=== PATIENT | male | born 1955 | race Caucasian/White ===

== ENCOUNTER 2017-01-12 01:50 | Observation (INO) | payer MEDICARE, OTHER ==
[~2017-01-12] VITALS: Ht 165.1 cm; Wt 129.0 kg
[~2017-01-12 01:50] MED LIST: ASPIRIN EC81 MG PO; BUSPIRONE HCL15 MG PO; CARDIZEM30 MG PO; DILTIAZEM 12HR60 MG PO; DULERA 100 MCG8.8 GM INH; FLEXERIL 10 MG10 MG PO; GLUCOPHAGE 500500 MG PO; LIPITOR TAB 2020 MG PO; LOPRESSOR100 MG PO; LORTAB 10-3251 EACH PO; METOPROLOL TAR100 MG PO; PANTOPRAZOLE SO40 MG PO; PROTONIX40 MG PO; SERTRALINE HCL50 MG PO; TRAZODONE HCL50 MG PO; VENTOLIN HFA 66.7 GM INH; VITAMIN B-121000 MC3 PO
[2017-01-12 02:07] LABS: HEMOGLOBIN 14.6 gm/dl (14.0-17.5); RED BLOOD COUNT 4.56 M/UL (4.20-5.50); WHITE BLOOD COUNT 10.6 K/UL (4.5-11.0)
[2017-01-12 02:36] LABS: BUN/CREATININE RATIO 14 (0-10)
[2017-01-12] MEDS ORDERED: CARDIZEM30 MG PO (16:43)
== END 2017-01-12 18:40 | disposition home or self-care (01) ==
LOC: ER1 01:50 → ZEROF 05:55 → PROG CARE 10:35
PROVIDERS: Family Medicine; ADMIT Internal Medicine
DX: I34.0 Nonrheumatic mitral (valve) insufficiency (principal); I42.1 Obstructive hypertrophic cardiomyopathy; I10 Essential (primary) hypertension; E78.5 Hyperlipidemia, unspecified; G47.33 Obstructive sleep apnea (adult) (pediatric); E11.9 Type 2 diabetes mellitus without complications; I27.2 Other secondary pulmonary hypertension; F41.9 Anxiety disorder, unspecified; F17.210 Nicotine dependence, cigarettes, uncomplicated; K21.9 Gastro-esophageal reflux disease without esophagitis; N28.89 Other specified disorders of kidney and ureter; E66.01 Morbid (severe) obesity due to excess calories; Z79.82 Long term (current) use of aspirin; Z79.891 Long term (current) use of opiate analgesic; Z79.899 Other long term (current) drug therapy; Z90.49 Acquired absence of other specified parts of digestive tract; Z82.49 Family history of ischemic heart disease and other diseases of the circulatory system
CPT/HCPCS: ECHO; 36415; 71010; 80053; 80061; 82550; 82553; 82947; 82962; 83036; 83874; 83880; 84443; 84484; 85025; 93005; 93306; 94640; 94664; 99285; C1769; G0378; J1644; J2250; J3010; J7040; Q0162; Q9963

== ENCOUNTER 2017-03-11 17:31 | Emergency (ER) | payer MEDICARE, OTHER ==
[2017-03-11 19:16] LABS: HEMOGLOBIN 15.6 gm/dl (14.0-17.5); RED BLOOD COUNT 4.83 M/UL (4.20-5.50)
[2017-03-11 19:40] LABS: BUN/CREATININE RATIO 20 (0-10)
== END 2017-03-12 00:45 | disposition home or self-care (01) ==
LOC: ER1 17:31
PROVIDERS: Emergency Medicine
DX: I20.9 Angina pectoris, unspecified (principal); I11.9 Hypertensive heart disease without heart failure; E78.5 Hyperlipidemia, unspecified; Z79.84 Long term (current) use of oral hypoglycemic drugs; Z79.899 Other long term (current) drug therapy
CPT/HCPCS: 36415; 36600; 71020; 80053; 82550; 82553; 82803; 83874; 83880; 84484; 85025; 93005; 99285; J7050; Q9963

== ENCOUNTER 2021-01-13 15:23 | Emergency (ER) | payer MEDICARE ==
[~2021-01-13 15:23] MED LIST changes: +ALBUTEROL1.25 MG/3 INH; +BUSPAR 10MG10 MG PO; +CARDIZEM 60MG T60 MG PO; +DILTIAZEM HCL30 MG PO; +FUROSEMIDE20 MG PO; +FUROSEMIDE40 MG PO; +IPRAT-ALBUT 0.5-3 ML INH; +K-DUR TAB 20 M20 MEQ PO; +LIPITOR40 MG PO; +LOPRESSOR 25 MG25 MG PO; +METOPROLOL TART50 MG PO; +NICODERM CQ1 EAC1 TD; +NYSTATIN1 EAC2 MC; +NYSTATIN60 GM TOP; +PAIN RELIEF325 MG PO
[2021-01-13 17:05] LABS: HEMOGLOBIN 14.9 gm/dl (14.0-17.5); RED BLOOD COUNT 4.82 M/UL (4.20-5.50); WHITE BLOOD COUNT 8.8 K/UL (4.5-11.0)
[2021-01-13 17:21] LABS: BUN/CREATININE RATIO 16 (0-10)
== END 2021-01-14 22:35 | disposition short-term general hospital (02) ==
LOC: ER1 15:23
PROVIDERS: Emergency Medicine
DX: I20.0 Unstable angina (principal); E11.9 Type 2 diabetes mellitus without complications; I10 Essential (primary) hypertension; J44.9 Chronic obstructive pulmonary disease, unspecified; F17.210 Nicotine dependence, cigarettes, uncomplicated
CPT/HCPCS: 71045; 80053; 82550; 82553; 83874; 83880; 84484; 85025; 93005; 94664; 99285

== ENCOUNTER → 2021-01-18 | Outpatient (CLI) | payer MEDICARE, OTHER ==
[~2021-01-18] MED LIST changes: +ALBUTEROL2.5 MG/3 M INH; +ASPERCREME 1141.7 GM TP; +BREO ELLIPTA 11 EACH INH; +CARDIZEM 30MG T30 MG PO; +DESYREL 50 MG T50 MG PO; +FAMOTIDINE40 MG PO; +LOPRESSOR 50 MG50 MG PO; +MUCINEX600 MG PO; +OMNICEF 300 MG300 MG PO; +RANEXA500 MG PO
== END ==
LOC: KOH-I 10-30 13:00
DX: F17.200 Nicotine dependence, unspecified, uncomplicated (principal); I25.10 Atherosclerotic heart disease of native coronary artery without angina pectoris
CPT/HCPCS: 71271

== ENCOUNTER 2021-01-26 15:44 | Observation (INO) | payer MEDICARE, OTHER ==
[~2021-01-26] VITALS: Ht 167.6 cm; Wt 145.1 kg
[~2021-01-26 15:44] MED LIST changes: -ALBUTEROL2.5 MG/3 M INH; -ASPERCREME 1141.7 GM TP; -BREO ELLIPTA 11 EACH INH; -CARDIZEM 30MG T30 MG PO; -DESYREL 50 MG T50 MG PO; -FAMOTIDINE40 MG PO; -LOPRESSOR 50 MG50 MG PO; -MUCINEX600 MG PO; -OMNICEF 300 MG300 MG PO; -RANEXA500 MG PO
[2021-01-26 16:24] LABS: HEMOGLOBIN 13.8 gm/dl (14.0-17.5); RED BLOOD COUNT 4.49 M/UL (4.20-5.50); WHITE BLOOD COUNT 10.1 K/UL (4.5-11.0)
[2021-01-26 16:49] LABS: BUN/CREATININE RATIO 17 (0-10)
[2021-01-27] MEDS ORDERED: DESYREL 50 MG T50 MG PO (10:19)
[2021-01-27] MEDS ORDERED: RANEXA500 MG PO (10:19)
[2021-01-27] MEDS ORDERED: FAMOTIDINE40 MG PO (10:20)
[2021-01-27] MEDS ORDERED: VENTOLIN HFA 66.7 GM INH (10:21)
[2021-01-27] MEDS ORDERED: ASPERCREME 1141.7 GM TP (10:28)
[2021-01-28 06:42] LABS: HEMOGLOBIN 13.8 gm/dl (14.0-17.5); RED BLOOD COUNT 4.59 M/UL (4.20-5.50)
[2021-01-28 06:52] LABS: WHITE BLOOD COUNT 14.2 K/UL (4.5-11.0)
[2021-01-28 06:56] LABS: BUN/CREATININE RATIO 20 (0-10)
[2021-01-29] MEDS ORDERED: LOPRESSOR 50 MG50 MG PO (11:54)
[2021-01-29] MEDS ORDERED: CARDIZEM 30MG T30 MG PO (11:54)
== END 2021-01-29 17:35 | disposition home or self-care (01) ==
LOC: ER1 15:44 → MED SURG 4 20:30 → CDU 20:30 → MED SURG 4 22:39
PROVIDERS: Nurse Practitioner; ADMIT Internal Medicine
DX: R07.89 Other chest pain (principal); I25.10 Atherosclerotic heart disease of native coronary artery without angina pectoris; I10 Essential (primary) hypertension; E11.9 Type 2 diabetes mellitus without complications; F41.9 Anxiety disorder, unspecified; J45.909 Unspecified asthma, uncomplicated; E66.01 Morbid (severe) obesity due to excess calories; Z79.899 Other long term (current) drug therapy; Z79.84 Long term (current) use of oral hypoglycemic drugs; Z79.82 Long term (current) use of aspirin; Z20.822 Contact with and (suspected) exposure to COVID-19
CPT/HCPCS: ECHO; 36415; 71045; 80048; 80053; 82550; 82553; 82962; 83735; 83874; 83880; 84484; 85025; 85379; 93005; 93306; 94640; 94664; 94760; 96372; 96374; 96375; 99285; G0378; J1650; J1885; J1940; J2270; J2405; J2930; U0002

== ENCOUNTER 2021-03-29 15:27 | Observation (INO) | payer MEDICARE, OTHER ==
[~2021-03-29] VITALS: Ht 170.2 cm; Wt 154.7 kg
[~2021-03-29 15:27] MED LIST changes: +ASPERCREME 1141.7 GM TP; +CARDIZEM 30MG T30 MG PO; +DESYREL 50 MG T50 MG PO; +FAMOTIDINE40 MG PO; +LOPRESSOR 50 MG50 MG PO; +RANEXA500 MG PO
[2021-03-29 16:50] LABS: HEMOGLOBIN 15.1 gm/dl (14.0-17.5); RED BLOOD COUNT 4.89 M/UL (4.20-5.50); WHITE BLOOD COUNT 8.7 K/UL (4.5-11.0)
[2021-03-29 17:16] LABS: BUN/CREATININE RATIO 16 (0-10)
[2021-03-29] MEDS ORDERED: BREO ELLIPTA 11 EACH INH (19:43)
[2021-03-29] MEDS ORDERED: LOPRESSOR 25 MG25 MG PO (19:51)
[2021-03-29] MEDS ORDERED: MUCINEX600 MG PO (19:52)
[2021-03-29] MEDS ORDERED: CARDIZEM 60MG T60 MG PO (20:02)
[2021-03-29] MEDS ORDERED: BUSPAR 10MG10 MG PO (20:04)
[2021-03-29] MEDS ORDERED: ALBUTEROL2.5 MG/3 M INH (20:06)
[2021-03-30 03:30] LABS: HEMOGLOBIN 15.3 gm/dl (14.0-17.5); RED BLOOD COUNT 4.91 M/UL (4.20-5.50)
--- NOTE | 2021-03-30 08:00 | NUR ---
RN WAS SITTING AT NURSE'S STATION CHARTING AND HAPPENED TO LOOK INTO ROOM 4101. RN OBSERVED PATIENT LEANING TO HIS RIGHT SIDE IN A SITTING POSITION WITH HIS LEFT HAND CLUTCHING HIS CHEST. RN RAN INTO ROOM AND ASKED PATIENT IF HE WAS OKAY AND IF HE WAS EXPERIENCING CHEST PAIN. THE PATIENT WAS HAVING TROUBLE FORMING WORDS BUT MANAGED TO EXPRESS THAT HE WAS HAVING CHEST PAIN. RN NOTED THAT THE PATIENT'S SKIN COLOR LOOKED CAMP IN COMPARISON TO THE SHIFT ASSESSMENT PERFORMED BY RN PRIOR TO NOW. RN PRESSED THE STAFF ASSIST BUTTON. HELP ARRIVED, VITALS WERE OBTAINED, DR. MAYO WAS NOTIFIED OF SUDDEN CHANGE IN CONDITION, AND ORDERS WERE OBTAINED. MD ORDERED NITROGLYCERIN, CHEST X-RAY, CARDIAC PANEL. OTHER INTERVENTIONS INCLUDED THE FOLLOWING: CARDIAC CONSULT, DUONEBS. CARDIAC MD AND PA ASSESSED PATIENT AND ORDERED MORE MEDICATIONS AND INTERVENTIONS. PATIENT BECAME MORE ALERT AND ORIENTED INTERVENTIONS WERE CARRIED OUT. BLOOD PRESSURE DECREASED SIGNIFICANTLY AND PATIENT STATED THAT CHEST PAIN RESOLVED. BED LOCKED AND LOW. CALL LIGHT WITHIN REACH. RESEARCH ENVIRONMENTAL SCIENTIST MADE AWARE.
[2021-03-31] MEDS ORDERED: OMNICEF 300 MG300 MG PO (09:50)
[2021-03-31] MEDS ORDERED: LOPRESSOR 50 MG50 MG PO (09:50)
== END 2021-04-01 16:30 | disposition home or self-care (01) ==
LOC: ER1 15:27 → MED SURG 4 18:04 → CDU 18:04 → MED SURG 4 19:32
PROVIDERS: Emergency Medicine; Physician Assistant Medical; ADMIT Internal Medicine
DX: I11.0 Hypertensive heart disease with heart failure (principal); I50.31 Acute diastolic (congestive) heart failure; I25.10 Atherosclerotic heart disease of native coronary artery without angina pectoris; I42.2 Other hypertrophic cardiomyopathy; Z20.822 Contact with and (suspected) exposure to COVID-19; M50.30 Other cervical disc degeneration, unspecified cervical region; E11.9 Type 2 diabetes mellitus without complications; F41.9 Anxiety disorder, unspecified; J44.9 Chronic obstructive pulmonary disease, unspecified; F17.210 Nicotine dependence, cigarettes, uncomplicated; E66.01 Morbid (severe) obesity due to excess calories
CPT/HCPCS: 36415; 70450; 71045; 72125; 80048; 80053; 82550; 82553; 82962; 83605; 83690; 83735; 83874; 83880; 84100; 84439; 84443; 84484; 85025; 85027; 85610; 85730; 87040; 93005; 94640; 94664; 94760; 96365; 96366; 96372; 96375; 96376; 99285; G0378; J0456; J0696; J1650; J1940; J2270; J2930; J7030; U0002

== ENCOUNTER 2021-11-14 12:00 | Inpatient (IN) | payer MEDICARE, OTHER ==
[~2021-11-14] VITALS: Ht 162.6 cm; Wt 176.3 kg
[~2021-11-14 12:00] MED LIST changes: +BREO ELLIPTA 11 EACH INH; +BUMETANIDE1 MG PO; +ELIQUIS5 MG PO; +LIDOCAINE PAIN1 EACH TOP; -LIPITOR40 MG PO; +MUCINEX600 MG PO; +NICOTINE PATCH1 EACH TD; +NITROSTAT 0.40.4 MG SL; +OMNICEF 300 MG300 MG PO; +SPIRIVA18 MCG INH
[2021-11-14 12:13] LABS: HEMOGLOBIN 13.2 gm/dl (14.0-17.5); RED BLOOD COUNT 4.46 M/UL (4.20-5.50); WHITE BLOOD COUNT 15.2 K/UL (4.5-11.0)
[2021-11-14] MEDS ORDERED: LOPRESSOR 25 MG25 MG PO (16:21)
[2021-11-14] MEDS ORDERED: NYSTOP60 GM TOP (16:48)
[2021-11-14] MEDS ORDERED: ZOFRAN ODT 4 MG4 MG PO (16:48)
[2021-11-14] MEDS ORDERED: PROTONIX 40 MG40 M1 PO (16:49)
[2021-11-14] MEDS ORDERED: RANEXA500 MG PO (16:50)
[2021-11-14] MEDS ORDERED: ZOLOFT25 MG PO (16:50)
[2021-11-14] MEDS ORDERED: DESYREL 50 MG T50 MG PO (16:51)
[2021-11-14] MEDS ORDERED: BUSPIRONE HCL15 MG PO (20:04)
[2021-11-14] MEDS ORDERED: ALBUTEROL2.5 MG/3 M NEB (20:06)
[2021-11-14] MEDS ORDERED: LIPITOR40 MG PO (20:54)
[2021-11-15 02:55] LABS: HEMOGLOBIN 13.1 gm/dl (14.0-17.5); RED BLOOD COUNT 4.37 M/UL (4.20-5.50); WHITE BLOOD COUNT 13.8 K/UL (4.5-11.0)
--- NOTE | 2021-11-15 07:45 | NUR ---
INFORM COMM[employer]ITY [employer]S OFFICER MEAT STOCKER PATIENT IS ON CARDIZEM AT 15. HIS HEART RATE IS AT 145 PRESENTLY
--- NOTE | 2021-11-15 10:52 | NUR ---
CALLED DR NJ. HE WAS UNAWARE OF THE CONSULT. AWAITING [facility]ARDIOLOGY [facility] TO SEE PATIENT. SEEN PER Alissa TOMPKINS. PATIENT HAS RECIEVED DIGOXIN 0.25MG IV. HEART RATE IS STILL IN THE 150'S
--- NOTE | 2021-11-15 12:38 | NUR ---
AT 1145 DR NJ ON FLOOR FOR CARDIOVERSION. PER MD ORDER MORPHINE 2MG IV GIVEN AND VERSED 2MG GIVEN. PATIENT SHOCKED PER MD AT 200J. TOLERATED WELL, CONVERTED TO SINUS RYTHM.
--- NOTE | 2021-11-15 13:46 | NUR ---
PAGED DR SAUNDERS ABOUT CONSULT FROM DR MAYO
--- NOTE | 2021-11-15 13:52 | NUR ---
MD SAUNDERS RETURNED CALL, INFORMED OF CONSULT FROM DR MAYO
[2021-11-16 02:49] LABS: HEMOGLOBIN 12.3 gm/dl (14.0-17.5); RED BLOOD COUNT 4.28 M/UL (4.20-5.50); WHITE BLOOD COUNT 14.3 K/UL (4.5-11.0)
[2021-11-17 07:50] LABS: HEMOGLOBIN 12.4 gm/dl (14.0-17.5); RED BLOOD COUNT 4.26 M/UL (4.20-5.50); WHITE BLOOD COUNT 13.1 K/UL (4.5-11.0)
[2021-11-17 12:16] LABS: CREATININE, URINE 155.8 mg/dL (Not Estab.)
[2021-11-18 05:39] LABS: HEMOGLOBIN 12.5 gm/dl (14.0-17.5); RED BLOOD COUNT 4.16 M/UL (4.20-5.50)
[2021-11-18 05:43] LABS: WHITE BLOOD COUNT 19.6 K/UL (4.5-11.0)
[2021-11-19 04:09] LABS: HEMOGLOBIN 12.3 gm/dl (14.0-17.5); RED BLOOD COUNT 4.17 M/UL (4.20-5.50); WHITE BLOOD COUNT 24.1 K/UL (4.5-11.0)
[2021-11-20 07:29] LABS: HEMOGLOBIN 11.3 gm/dl (14.0-17.5); RED BLOOD COUNT 3.79 M/UL (4.20-5.50); WHITE BLOOD COUNT 20.1 K/UL (4.5-11.0)
[2021-11-21 10:40] LABS: HEMOGLOBIN 11.2 gm/dl (14.0-17.5)
[2021-11-22 14:14] LABS: BODY FLUID SOURCE BRONCHIAL LAVAGE
[2021-11-22 14:15] LABS: RBC (MANUAL) 32825; WBC (MANUAL) 572.5
[2021-11-22 14:16] LABS: MONONUCLEAR CELLS 25 %; POLYMORPHONUCLEAR 75 %
[2021-11-24 05:22] LABS: HEMOGLOBIN 11.5 gm/dl (14.0-17.5); RED BLOOD COUNT 4.04 M/UL (4.20-5.50); WHITE BLOOD COUNT 12.6 K/UL (4.5-11.0)
[2021-11-25 04:40] LABS: HEMOGLOBIN 12.9 gm/dl (14.0-17.5); RED BLOOD COUNT 4.44 M/UL (4.20-5.50)
[2021-11-25 04:53] LABS: WHITE BLOOD COUNT 16.1 K/UL (4.5-11.0)
[2021-11-26 05:24] LABS: RED BLOOD COUNT 4.45 M/UL (4.20-5.50)
[2021-11-27 05:18] LABS: HEMOGLOBIN 10.9 gm/dl (14.0-17.5); RED BLOOD COUNT 3.76 M/UL (4.20-5.50); WHITE BLOOD COUNT 29.1 K/UL (4.5-11.0)
[2021-11-28 05:40] LABS: RED BLOOD COUNT 3.4 M/UL (4.20-5.50); WHITE BLOOD COUNT 25.5 K/UL (4.5-11.0)
[2021-11-29 05:23] LABS: HEMOGLOBIN 9.6 gm/dl (14.0-17.5); RED BLOOD COUNT 3.3 M/UL (4.20-5.50)
[2021-11-30 05:39] LABS: HEMOGLOBIN 9.2 gm/dl (14.0-17.5); RED BLOOD COUNT 3.14 M/UL (4.20-5.50); WHITE BLOOD COUNT 21.8 K/UL (4.5-11.0)
[2021-12-01 05:16] LABS: RED BLOOD COUNT 3.1 M/UL (4.20-5.50); WHITE BLOOD COUNT 18.6 K/UL (4.5-11.0)
[2021-12-02 05:12] LABS: HEMOGLOBIN 8.6 gm/dl (14.0-17.5); RED BLOOD COUNT 2.93 M/UL (4.20-5.50); WHITE BLOOD COUNT 16.9 K/UL (4.5-11.0)
[2021-12-03 05:54] LABS: HEMOGLOBIN 9.4 gm/dl (14.0-17.5); WHITE BLOOD COUNT 14.3 K/UL (4.5-11.0)
[2021-12-03 05:59] LABS: RED BLOOD COUNT 3.23 M/UL (4.20-5.50)
[2021-12-04 09:54] LABS: HEMOGLOBIN 9.1 gm/dl (14.0-17.5); RED BLOOD COUNT 3.11 M/UL (4.20-5.50); WHITE BLOOD COUNT 13.8 K/UL (4.5-11.0)
[2021-12-05 05:55] LABS: RED BLOOD COUNT 3.12 M/UL (4.20-5.50)
[2021-12-06 04:51] LABS: RED BLOOD COUNT 3.18 M/UL (4.20-5.50)
[2021-12-07 05:07] LABS: HEMOGLOBIN 8.7 gm/dl (14.0-17.5); RED BLOOD COUNT 3.11 M/UL (4.20-5.50); WHITE BLOOD COUNT 19.2 K/UL (4.5-11.0)
[2021-12-07 05:39] LABS: HBSAG SCREEN Negative (Negative); HEP A AB, IGM Negative (Negative); HEP B CORE AB, IGM Negative (Negative); HEP C VIRUS AB 0.1 (0.0-0.9)
[2021-12-08 05:22] LABS: HEMOGLOBIN 9.4 gm/dl (14.0-17.5); RED BLOOD COUNT 3.28 M/UL (4.20-5.50); WHITE BLOOD COUNT 20.1 K/UL (4.5-11.0)
[2021-12-09 05:40] LABS: HEMOGLOBIN 9.4 gm/dl (14.0-17.5); RED BLOOD COUNT 3.35 M/UL (4.20-5.50); WHITE BLOOD COUNT 24.9 K/UL (4.5-11.0)
[2021-12-10 05:18] LABS: RED BLOOD COUNT 2.85 M/UL (4.20-5.50); WHITE BLOOD COUNT 23.2 K/UL (4.5-11.0)
[2021-12-11 04:39] LABS: HEMOGLOBIN 8.2 gm/dl (14.0-17.5); RED BLOOD COUNT 2.85 M/UL (4.20-5.50); WHITE BLOOD COUNT 21.7 K/UL (4.5-11.0)
[2021-12-12 04:36] LABS: HEMOGLOBIN 7.5 gm/dl (14.0-17.5); RED BLOOD COUNT 2.67 M/UL (4.20-5.50); WHITE BLOOD COUNT 16.5 K/UL (4.5-11.0)
[2021-12-13 04:33] LABS: RED BLOOD COUNT 2.82 M/UL (4.20-5.50); WHITE BLOOD COUNT 14.3 K/UL (4.5-11.0)
[2021-12-14 05:18] LABS: HEMOGLOBIN 8.8 gm/dl (14.0-17.5); RED BLOOD COUNT 3.11 M/UL (4.20-5.50); WHITE BLOOD COUNT 14.3 K/UL (4.5-11.0)
[2021-12-15 08:04] LABS: HEMOGLOBIN 7.6 gm/dl (14.0-17.5); WHITE BLOOD COUNT 13.8 K/UL (4.5-11.0)
[2021-12-15 08:07] LABS: RED BLOOD COUNT 2.7 M/UL (4.20-5.50)
[2021-12-16 05:35] LABS: HEMOGLOBIN 7.7 gm/dl (14.0-17.5); RED BLOOD COUNT 2.73 M/UL (4.20-5.50); WHITE BLOOD COUNT 11.5 K/UL (4.5-11.0)
[2021-12-17 10:06] LABS: HEMOGLOBIN 8.4 gm/dl (14.0-17.5); RED BLOOD COUNT 2.98 M/UL (4.20-5.50); WHITE BLOOD COUNT 12.9 K/UL (4.5-11.0)
[2021-12-18 08:08] LABS: HEMOGLOBIN 9.3 gm/dl (14.0-17.5); RED BLOOD COUNT 3.15 M/UL (4.20-5.50)
[2021-12-18 08:09] LABS: WHITE BLOOD COUNT 28.5 K/UL (4.5-11.0)
[2021-12-19 05:44] LABS: HEMOGLOBIN 8.3 gm/dl (14.0-17.5); RED BLOOD COUNT 2.98 M/UL (4.20-5.50); WHITE BLOOD COUNT 23.1 K/UL (4.5-11.0)
[2021-12-21 13:57] LABS: HEMOGLOBIN 8.4 gm/dl (14.0-17.5); RED BLOOD COUNT 2.97 M/UL (4.20-5.50); WHITE BLOOD COUNT 11.8 K/UL (4.5-11.0)
[2021-12-22 08:25] LABS: HEMOGLOBIN 9.5 gm/dl (14.0-17.5); RED BLOOD COUNT 3.38 M/UL (4.20-5.50)
[2021-12-23 05:27] LABS: HEMOGLOBIN 8.6 gm/dl (14.0-17.5); RED BLOOD COUNT 3.06 M/UL (4.20-5.50)
[2021-12-23 05:31] LABS: WHITE BLOOD COUNT 14.5 K/UL (4.5-11.0)
--- NOTE | 2021-12-23 23:31 | NUR ---
STAFF WAS GIVING PT A BATH WHEN PT SKIN WAS NTD TO BREAK OPEN WHEN TRYING TO HOLD PATIENT OVER TO CLEAN HIS BACK AND PROVIDE WOUND CARE. BATH & WOUND CARE UNABLE TO COMPLETE AT THIS TIME R/T PT WAS HAVING BM. HOUSE SUPERVISIOR NOTIFIED RE; SKIN ISSUES, TUBE MARIE PRESSING AGAINST PT LEFT EAR AND UNABLE TO CHANGE IT. MD AWARE
--- NOTE | 2021-12-24 | NUR ---
TUBE MARIE CHANGED AND PLACED UNDER EACH EAR PER RESPIRATORY BIJU & NEGRO
[2021-12-24 05:06] LABS: HEMOGLOBIN 8.6 gm/dl (14.0-17.5); RED BLOOD COUNT 3.1 M/UL (4.20-5.50); WHITE BLOOD COUNT 12.1 K/UL (4.5-11.0)
[2021-12-25 05:57] LABS: HEMOGLOBIN 8.8 gm/dl (14.0-17.5); RED BLOOD COUNT 3.11 M/UL (4.20-5.50)
[2021-12-26 05:16] LABS: HEMOGLOBIN 9.4 gm/dl (14.0-17.5); RED BLOOD COUNT 3.38 M/UL (4.20-5.50)
[2021-12-26 05:32] LABS: WHITE BLOOD COUNT 8.6 K/UL (4.5-11.0)
--- NOTE | 2021-12-27 03:00 | NUR ---
PARTIAL BATH DONE D/T MULTIPLE BLISTERS AND OPEN AREAS FROM PREVIOUSLY RUPTURED BLISTERED AREAS. LINENS CHANGED.
[2021-12-27 05:16] LABS: HEMOGLOBIN 9.3 gm/dl (14.0-17.5); RED BLOOD COUNT 3.35 M/UL (4.20-5.50); WHITE BLOOD COUNT 10.2 K/UL (4.5-11.0)
--- NOTE | 2021-12-28 03:00 | NUR ---
CHANGING BED LINEN. RECTAL TUBE CAME OUT. NEW RECTAL TUBE INSERTED WITHOUT DIFFICULTY.
[2021-12-28 07:02] LABS: RED BLOOD COUNT 3.27 M/UL (4.20-5.50)
[2021-12-28 07:19] LABS: WHITE BLOOD COUNT 18.2 K/UL (4.5-11.0)
--- NOTE | 2021-12-28 20:08 | NUR ---
PT . 2016 DR MORRIS NOTIFIED AND PATIENT'S SISTER (ROM) . 2039 TIFFANY WAS NOTIFIED AND RULED OUT. TIFFANY REP ( CHIRAG FALGUNI) CASE # [id number]. 2099 CASEWORK SPECIALIST'S OFFICE WAS NOTIFIED TO LOW PRESSURE BOILER TENDER BODY. AWAITING RETURN CALL , CASEWORK SPECIALIST OFFICE STATES ,THEY WILL ATTEMPT TO CONTACT [facility] TO ENQUIRE IF POSSIBLY THEY WILL BE WILLING TO LOW PRESSURE BOILER TENDER BODY.
== END 2021-12-28 22:05 | disposition expired | DRG 207 ==
LOC: ER1 12:00 → PROG CARE 14:54 → CDU 14:54 → CCU 14:54 → PROG CARE 20:38 → CCU 11-16 12:48
PROVIDERS: Emergency Medicine; Internal Medicine; Internal Medicine Critical Care Medicine; Internal Medicine Nephrology; Internal Medicine Pulmonary Disease; Physician Assistant Medical; ADMIT Internal Medicine
PROC: 0DH67UZ Insertion of Feeding Device into Stomach, Via Natural or Artificial Opening (ICD-10-PCS; 2021-11-14)
PROC: 3E0G76Z Introduction of Nutritional Substance into Upper GI, Via Natural or Artificial Opening (ICD-10-PCS; 2021-11-14)
PROC: 5A09357 Assistance with Respiratory Ventilation, Less than 24 Consecutive Hours, Continuous Positive Airway Pressure (ICD-10-PCS; 2021-11-14)
PROC: B24BZZZ Ultrasonography of Heart with Aorta (ICD-10-PCS; principal; 2021-11-15)
PROC: 5A2204Z Restoration of Cardiac Rhythm, Single (ICD-10-PCS; 2021-11-15)
PROC: 5A0935A Assistance with Respiratory Ventilation, Less than 24 Consecutive Hours, High Flow/Velocity Cannula (ICD-10-PCS; 2021-11-15)
PROC: 0BH17EZ Insertion of Endotracheal Airway into Trachea, Via Natural or Artificial Opening (ICD-10-PCS; 2021-11-16)
PROC: 5A1955Z Respiratory Ventilation, Greater than 96 Consecutive Hours (ICD-10-PCS; 2021-11-16)
PROC: 5A09357 Assistance with Respiratory Ventilation, Less than 24 Consecutive Hours, Continuous Positive Airway Pressure (ICD-10-PCS; 2021-11-16)
PROC: 5A0935A Assistance with Respiratory Ventilation, Less than 24 Consecutive Hours, High Flow/Velocity Cannula (ICD-10-PCS; 2021-11-16)
PROC: 3E043XZ Introduction of Vasopressor into Central Vein, Percutaneous Approach (ICD-10-PCS; 2021-11-16)
PROC: 0B9B8ZZ Drainage of Left Lower Lobe Bronchus, Via Natural or Artificial Opening Endoscopic (ICD-10-PCS; 2021-11-22)
PROC: 5A09357 Assistance with Respiratory Ventilation, Less than 24 Consecutive Hours, Continuous Positive Airway Pressure (ICD-10-PCS; 2021-11-24)
PROC: 5A09357 Assistance with Respiratory Ventilation, Less than 24 Consecutive Hours, Continuous Positive Airway Pressure (ICD-10-PCS; 2021-11-24)
PROC: 5A0935A Assistance with Respiratory Ventilation, Less than 24 Consecutive Hours, High Flow/Velocity Cannula (ICD-10-PCS; 2021-11-25)
PROC: 5A0935A Assistance with Respiratory Ventilation, Less than 24 Consecutive Hours, High Flow/Velocity Cannula (ICD-10-PCS; 2021-11-25)
PROC: 5A09357 Assistance with Respiratory Ventilation, Less than 24 Consecutive Hours, Continuous Positive Airway Pressure (ICD-10-PCS; 2021-11-25)
PROC: 0BH17EZ Insertion of Endotracheal Airway into Trachea, Via Natural or Artificial Opening (ICD-10-PCS; 2021-11-26)
PROC: 0BCB8ZZ Extirpation of Matter from Left Lower Lobe Bronchus, Via Natural or Artificial Opening Endoscopic (ICD-10-PCS; 2021-11-26)
PROC: 0BC88ZZ Extirpation of Matter from Left Upper Lobe Bronchus, Via Natural or Artificial Opening Endoscopic (ICD-10-PCS; 2021-11-26)
PROC: 0BC78ZZ Extirpation of Matter from Left Main Bronchus, Via Natural or Artificial Opening Endoscopic (ICD-10-PCS; 2021-11-26)
PROC: 02HV33Z Insertion of Infusion Device into Superior Vena Cava, Percutaneous Approach (ICD-10-PCS; 2021-11-26)
PROC: B548ZZA Ultrasonography of Superior Vena Cava, Guidance (ICD-10-PCS; 2021-11-26)
PROC: 5A1955Z Respiratory Ventilation, Greater than 96 Consecutive Hours (ICD-10-PCS; 2021-11-26)
PROC: 3E03329 Introduction of Other Anti-infective into Peripheral Vein, Percutaneous Approach (ICD-10-PCS; 2021-11-26)
PROC: 0BC68ZZ Extirpation of Matter from Right Lower Lobe Bronchus, Via Natural or Artificial Opening Endoscopic (ICD-10-PCS; 2021-11-27)
PROC: 0BCB8ZZ Extirpation of Matter from Left Lower Lobe Bronchus, Via Natural or Artificial Opening Endoscopic (ICD-10-PCS; 2021-11-27)
PROC: 0BC88ZZ Extirpation of Matter from Left Upper Lobe Bronchus, Via Natural or Artificial Opening Endoscopic (ICD-10-PCS; 2021-11-27)
PROC: 0BC98ZZ Extirpation of Matter from Lingula Bronchus, Via Natural or Artificial Opening Endoscopic (ICD-10-PCS; 2021-11-27)
PROC: 0B9B8ZZ Drainage of Left Lower Lobe Bronchus, Via Natural or Artificial Opening Endoscopic (ICD-10-PCS; 2021-11-30)
PROC: 0B9G8ZZ Drainage of Left Upper Lung Lobe, Via Natural or Artificial Opening Endoscopic (ICD-10-PCS; 2021-11-30)
PROC: 0B978ZZ Drainage of Left Main Bronchus, Via Natural or Artificial Opening Endoscopic (ICD-10-PCS; 2021-12-02)
PROC: 02HV33Z Insertion of Infusion Device into Superior Vena Cava, Percutaneous Approach (ICD-10-PCS; 2021-12-05)
PROC: B548ZZA Ultrasonography of Superior Vena Cava, Guidance (ICD-10-PCS; 2021-12-05)
PROC: 5A1D70Z Performance of Urinary Filtration, Intermittent, Less than 6 Hours Per Day (ICD-10-PCS; 2021-12-06)
PROC: 5A1D70Z Performance of Urinary Filtration, Intermittent, Less than 6 Hours Per Day (ICD-10-PCS; 2021-12-07)
PROC: 5A1D70Z Performance of Urinary Filtration, Intermittent, Less than 6 Hours Per Day (ICD-10-PCS; 2021-12-08)
PROC: 0B978ZZ Drainage of Left Main Bronchus, Via Natural or Artificial Opening Endoscopic (ICD-10-PCS; 2021-12-09)
PROC: 0B9B8ZZ Drainage of Left Lower Lobe Bronchus, Via Natural or Artificial Opening Endoscopic (ICD-10-PCS; 2021-12-09)
PROC: 0B988ZZ Drainage of Left Upper Lobe Bronchus, Via Natural or Artificial Opening Endoscopic (ICD-10-PCS; 2021-12-09)
PROC: 5A1D70Z Performance of Urinary Filtration, Intermittent, Less than 6 Hours Per Day (ICD-10-PCS; 2021-12-10)
PROC: 0B9J8ZZ Drainage of Left Lower Lung Lobe, Via Natural or Artificial Opening Endoscopic (ICD-10-PCS; 2021-12-13)
PROC: 0B9G8ZZ Drainage of Left Upper Lung Lobe, Via Natural or Artificial Opening Endoscopic (ICD-10-PCS; 2021-12-13)
PROC: 5A1D70Z Performance of Urinary Filtration, Intermittent, Less than 6 Hours Per Day (ICD-10-PCS; 2021-12-14)
PROC: 5A1D70Z Performance of Urinary Filtration, Intermittent, Less than 6 Hours Per Day (ICD-10-PCS; 2021-12-16)
PROC: 5A1D70Z Performance of Urinary Filtration, Intermittent, Less than 6 Hours Per Day (ICD-10-PCS; 2021-12-17)
PROC: 4A10X4Z Monitoring of Central Nervous Electrical Activity, External Approach (ICD-10-PCS; 2021-12-20)
PROC: 5A1D70Z Performance of Urinary Filtration, Intermittent, Less than 6 Hours Per Day (ICD-10-PCS; 2021-12-20)
PROC: 5A1D70Z Performance of Urinary Filtration, Intermittent, Less than 6 Hours Per Day (ICD-10-PCS; 2021-12-23)
PROC: 5A1D70Z Performance of Urinary Filtration, Intermittent, Less than 6 Hours Per Day (ICD-10-PCS; 2021-12-24)
PROC: 5A1D70Z Performance of Urinary Filtration, Intermittent, Less than 6 Hours Per Day (ICD-10-PCS; 2021-12-25)
PROC: 5A1D70Z Performance of Urinary Filtration, Intermittent, Less than 6 Hours Per Day (ICD-10-PCS; 2021-12-28)
DX: J80 Acute respiratory distress syndrome (principal); A41.52 Sepsis due to Pseudomonas; I50.33 Acute on chronic diastolic (congestive) heart failure; R65.21 Severe sepsis with septic shock; N17.0 Acute kidney failure with tubular necrosis; N18.6 End stage renal disease; J15.1 Pneumonia due to Pseudomonas; J15.211 Pneumonia due to Methicillin susceptible Staphylococcus aureus; G92.8 Other toxic encephalopathy; A41.01 Sepsis due to Methicillin susceptible Staphylococcus aureus; L76.22 Postprocedural hemorrhage of skin and subcutaneous tissue following other procedure; I42.2 Other hypertrophic cardiomyopathy; E66.2 Morbid (severe) obesity with alveolar hypoventilation; I47.1 Supraventricular tachycardia; Z68.43 Body mass index [BMI] 50.0-59.9, adult; I48.92 Unspecified atrial flutter; N17.9 Acute kidney failure, unspecified; E87.1 Hypo-osmolality and hyponatremia; E87.4 Mixed disorder of acid-base balance; R04.2 Hemoptysis; D62 Acute posthemorrhagic anemia; I13.2 Hypertensive heart and chronic kidney disease with heart failure and with stage 5 chronic kidney disease, or end stage renal disease; I42.8 Other cardiomyopathies; Z20.822 Contact with and (suspected) exposure to COVID-19; Z66 Do not resuscitate; R57.0 Cardiogenic shock; E11.43 Type 2 diabetes mellitus with diabetic autonomic (poly)neuropathy; K31.84 Gastroparesis; Y83.8 Other surgical procedures as the cause of abnormal reaction of the patient, or of later complication, without mention of misadventure at the time of the procedure; F17.220 Nicotine dependence, chewing tobacco, uncomplicated; I34.0 Nonrheumatic mitral (valve) insufficiency; I45.10 Unspecified right bundle-branch block; E78.5 Hyperlipidemia, unspecified; K21.9 Gastro-esophageal reflux disease without esophagitis; E11.22 Type 2 diabetes mellitus with diabetic chronic kidney disease; I27.20 Pulmonary hypertension, unspecified; I25.10 Atherosclerotic heart disease of native coronary artery without angina pectoris; E11.65 Type 2 diabetes mellitus with hyperglycemia; E87.8 Other disorders of electrolyte and fluid balance, not elsewhere classified; E87.6 Hypokalemia; E87.5 Hyperkalemia; E88.09 Other disorders of plasma-protein metabolism, not elsewhere classified; E83.39 Other disorders of phosphorus metabolism; I44.7 Left bundle-branch block, unspecified; I48.0 Paroxysmal atrial fibrillation; D63.1 Anemia in chronic kidney disease; R13.10 Dysphagia, unspecified; L89.896 Pressure-induced deep tissue damage of other site; L89.816 Pressure-induced deep tissue damage of head; L89.626 Pressure-induced deep tissue damage of left heel; L89.616 Pressure-induced deep tissue damage of right heel; L89.522 Pressure ulcer of left ankle, stage 2; L89.322 Pressure ulcer of left buttock, stage 2; L89.892 Pressure ulcer of other site, stage 2; T42.75XA Adverse effect of unspecified antiepileptic and sedative-hypnotic drugs, initial encounter; L89.312 Pressure ulcer of right buttock, stage 2; Z74.01 Bed confinement status; Z91.14 Patient's other noncompliance with medication regimen; Z79.4 Long term (current) use of insulin; Z90.49 Acquired absence of other specified parts of digestive tract; Z82.49 Family history of ischemic heart disease and other diseases of the circulatory system; Z79.01 Long term (current) use of anticoagulants; Z91.11 Patient's noncompliance with dietary regimen; Z99.81 Dependence on supplemental oxygen; Z98.890 Other specified postprocedural states; Z80.3 Family history of malignant neoplasm of breast; Z88.1 Allergy status to other antibiotic agents; Z79.82 Long term (current) use of aspirin; Z99.2 Dependence on renal dialysis
CPT/HCPCS: ECHO; 0240U; 31500; 36415; 36600; 51702; 71045; 71250; 74018; 80048; 80053; 80074; 80076; 80202; 81001; 82043; 82533; 82550; 82553; 82570; 82803; 82962; 83036; 83605; 83615; 83735; 83880; 84100; 84132; 84156; 84295; 84439; 84443; 84484; 85007; 85025; 85027; 85379; 85384; 85610; 85652; 85730; 86140; 87015; 87040; 87045; 87046; 87070; 87077; 87081; 87086; 87116; 87186; 87205; 87206; 87252; 87449; 89051; 90937; 92610; 92960; 93005; 93306; 94002; 94003; 94640; 94660; 94664; 94760; 95819; 96374; 96375; 99285; A6212; C1751; C1752; C9113; G0257; J0360; J1120; J1160; J1200; J1205; J1335; J1644; J1650; J1885; J1940; J1953; J1956; J2020; J2060; J2185; J2250; J2270; J2370; J2543; J2704; J2765; J3370; J3486; J7030; J7050; J7060; J7070; P9047; Q9957